=== PATIENT | male | born 1940 | race Caucasian/White ===

== ENCOUNTER → 2016-08-08 | Outpatient (CLI) | payer MEDICARE, OTHER ==
[2016-08-08 13:12] LABS: PROTHROMBIN TIME 31.7 SEC (11.4-15.4)
== END ==
LOC: OD 12:29
PROVIDERS: ATTEND Specialist
DX: Z79.01 Long term (current) use of anticoagulants (principal); I42.9 Cardiomyopathy, unspecified
CPT/HCPCS: 36415; 85610

== ENCOUNTER → 2016-10-10 | Outpatient (CLI) | payer MEDICARE, OTHER ==
[2016-10-10 11:11] LABS: PROTHROMBIN TIME 33.5 SEC (11.4-15.4)
== END ==
LOC: OD 10:13
PROVIDERS: ATTEND Specialist
DX: I42.9 Cardiomyopathy, unspecified (principal); Z79.01 Long term (current) use of anticoagulants
CPT/HCPCS: 36415; 85610

== ENCOUNTER → 2016-11-15 | Outpatient (CLI) | payer MEDICARE, OTHER ==
[2016-11-15 11:33] LABS: PROTHROMBIN TIME 43.1 SEC (11.4-15.4)
[2016-11-15 11:57] LABS: ALANINE AMINOTRANSFERASE 25 U/L (21-72); ALBUMIN 3.7 g/dL (3.5-5.0); ALKALINE PHOSPHATASE 42 U/L (38-126); ASPARTATE AMINO TRANSFERASE 21 U/L (17-59); BILIRUBIN,DIRECT 0.5 mg/dL (0.0-0.4); BILIRUBIN,TOTAL 0.8 mg/dL (0.2-1.3); CHOLESTEROL 118.48 mg/dL (0-200); Direct HDL 55 mg/dL (>40); TOTAL PROTEIN 6.3 g/dL (6.3-8.2); TRIGLYCERIDES 275 mg/dL (<150)
[2016-11-15 12:08] LABS: DIRECT LDL 33 mg/dL (<100)
== END ==
LOC: OD 10:51
PROVIDERS: ATTEND Specialist
DX: I25.10 Atherosclerotic heart disease of native coronary artery without angina pectoris (principal); I42.9 Cardiomyopathy, unspecified; E78.4 Other hyperlipidemia; I44.7 Left bundle-branch block, unspecified; I48.1 Persistent atrial fibrillation; Z79.01 Long term (current) use of anticoagulants; I66.9 Occlusion and stenosis of unspecified cerebral artery; R01.1 Cardiac murmur, unspecified; Z79.899 Other long term (current) drug therapy; G45.9 Transient cerebral ischemic attack, unspecified
CPT/HCPCS: 36415; 80061; 80076; 85610

== ENCOUNTER → 2016-11-26 | Outpatient (CLI) | payer MEDICARE, OTHER ==
[2016-11-26 11:40] LABS: PROTHROMBIN TIME 45.8 SEC (11.4-15.4)
== END ==
LOC: OD 10:25
PROVIDERS: ATTEND Specialist
DX: I42.9 Cardiomyopathy, unspecified (principal); Z79.01 Long term (current) use of anticoagulants
CPT/HCPCS: 36415; 85610

== ENCOUNTER → 2016-12-04 | Outpatient (CLI) | payer MEDICARE, OTHER ==
[2016-12-04 13:32] LABS: PROTHROMBIN TIME 28.1 SEC (11.4-15.4)
== END ==
LOC: OD 12:20
PROVIDERS: ATTEND Specialist
DX: Z79.01 Long term (current) use of anticoagulants (principal); I42.9 Cardiomyopathy, unspecified
CPT/HCPCS: 36415; 85610

== ENCOUNTER → 2017-01-17 | Outpatient (CLI) | payer MEDICARE, OTHER ==
[2017-01-17 12:07] LABS: PROTHROMBIN TIME 12.6 SEC (11.4-15.4)
== END ==
LOC: OD 11:04
PROVIDERS: ATTEND Specialist
DX: Z79.01 Long term (current) use of anticoagulants (principal); I42.9 Cardiomyopathy, unspecified
CPT/HCPCS: 36415; 85610

== ENCOUNTER → 2017-01-31 | Outpatient (CLI) | payer MEDICARE, OTHER ==
[2017-01-31 12:15] LABS: PROTHROMBIN TIME 31.4 SEC (11.4-15.4)
== END ==
LOC: OD 11:26
PROVIDERS: ATTEND Specialist
DX: I42.9 Cardiomyopathy, unspecified (principal); Z79.01 Long term (current) use of anticoagulants
CPT/HCPCS: 85610

== ENCOUNTER → 2017-02-18 | Outpatient (CLI) | payer MEDICARE, OTHER ==
[2017-02-18 13:39] LABS: PROTHROMBIN TIME 20.3 SEC (11.4-15.4)
== END ==
LOC: OD 12:49
PROVIDERS: ATTEND Specialist
DX: I42.9 Cardiomyopathy, unspecified (principal); Z79.01 Long term (current) use of anticoagulants
CPT/HCPCS: 36415; 85610

== ENCOUNTER → 2017-03-28 | Outpatient (CLI) | payer MEDICARE, OTHER ==
[2017-03-28 12:25] LABS: PROTHROMBIN TIME 35.1 SEC (11.4-15.4)
== END ==
LOC: OD 11:41
PROVIDERS: ATTEND Specialist
DX: Z79.01 Long term (current) use of anticoagulants (principal); I48.1 Persistent atrial fibrillation
CPT/HCPCS: 36415; 85610

== ENCOUNTER → 2017-04-22 | Outpatient (CLI) | payer MEDICARE, OTHER ==
[2017-04-22 12:31] LABS: PROTHROMBIN TIME 33.3 SEC (11.4-15.4)
== END ==
LOC: OD 11:25
PROVIDERS: ATTEND Specialist
DX: I48.1 Persistent atrial fibrillation (principal); Z79.01 Long term (current) use of anticoagulants
CPT/HCPCS: 36415; 85610

== ENCOUNTER → 2017-05-28 | Outpatient (CLI) | payer MEDICARE, OTHER ==
[2017-05-28 11:15] LABS: PROTHROMBIN TIME 29.6 SEC (11.4-15.4)
== END ==
LOC: OD 09:24
PROVIDERS: ATTEND Specialist
DX: I48.1 Persistent atrial fibrillation (principal); Z79.01 Long term (current) use of anticoagulants
CPT/HCPCS: 36415; 85610

== ENCOUNTER → 2017-07-31 | Outpatient (CLI) | payer MEDICARE, OTHER ==
[2017-07-31 11:15] LABS: INTERNATIONAL RATION (INR) 2.74; PROTHROMBIN TIME 30.3 SEC (11.4-15.4)
== END ==
LOC: OD 10:13
PROVIDERS: ATTEND Specialist
DX: I48.1 Persistent atrial fibrillation (principal); Z79.01 Long term (current) use of anticoagulants
CPT/HCPCS: 36415; 85610

== ENCOUNTER → 2017-09-25 | Outpatient (CLI) | payer MEDICARE, OTHER ==
[2017-09-25 10:42] LABS: INTERNATIONAL RATION (INR) 2.88; PROTHROMBIN TIME 31.6 SEC (11.4-15.4)
== END ==
LOC: OD 09:40
PROVIDERS: ATTEND Specialist
DX: I48.1 Persistent atrial fibrillation (principal); Z79.01 Long term (current) use of anticoagulants
CPT/HCPCS: 36415; 85610

== ENCOUNTER → 2017-11-05 | Outpatient (CLI) | payer MEDICARE, OTHER ==
[2017-11-05 13:07] LABS: PROTHROMBIN TIME 31.7 SEC (11.4-15.4)
== END ==
LOC: OD 12:18
PROVIDERS: ATTEND Specialist
DX: I48.1 Persistent atrial fibrillation (principal); Z79.01 Long term (current) use of anticoagulants
CPT/HCPCS: 36415; 85610

== ENCOUNTER → 2017-12-21 | Outpatient (CLI) | payer MEDICARE, OTHER ==
[2017-12-21 11:47] LABS: INTERNATIONAL RATION (INR) 3.79; PROTHROMBIN TIME 39.1 SEC (11.4-15.4)
== END ==
LOC: OD 10:48
PROVIDERS: ATTEND Specialist
DX: I48.1 Persistent atrial fibrillation (principal); Z79.01 Long term (current) use of anticoagulants
CPT/HCPCS: 36415; 85610

== ENCOUNTER → 2018-01-09 | Outpatient (CLI) | payer MEDICARE, OTHER ==
[2018-01-09 10:19] LABS: PROTHROMBIN TIME 15.8 SEC (11.4-15.4)
[2018-01-09 10:20] LABS: PARTIAL THROMBOPLASTIN TIME 25.6 SEC (23.5-35.8)
== END ==
LOC: OD 09:14
PROVIDERS: ATTEND Pain Medicine Interventional Pain Medicine
DX: D68.9 Coagulation defect, unspecified (principal); Z79.01 Long term (current) use of anticoagulants
CPT/HCPCS: 36415; 85610; 85730

== ENCOUNTER → 2018-01-20 | Outpatient (CLI) | payer MEDICARE, OTHER ==
[2018-01-20 10:06] LABS: INTERNATIONAL RATION (INR) 2.58; PROTHROMBIN TIME 28.9 SEC (11.4-15.4)
== END ==
LOC: OD 09:01
PROVIDERS: ATTEND Specialist
DX: I48.1 Persistent atrial fibrillation (principal); Z79.01 Long term (current) use of anticoagulants
CPT/HCPCS: 36415; 85610

== ENCOUNTER → 2018-02-12 | Outpatient (CLI) | payer MEDICARE, OTHER ==
--- NOTE | 2018-02-12 09:34 | RADIOLOGY REPORT (SQ) ---
EXAM DESCRIPTION: CT CHEST WITH COMPLETED DATE/TIME: 02/12/2018 8:56 am REASON FOR STUDY: R06.02 SHORTNESS OF BREATH R06.01 ORTHOPNEA Z72.0 TOBACCO USE R63.4 ABNORMAL WE IGHT LOSS COMPARISON: 2014. TECHNIQUE: CT scan of the chest performed using helical scanning technique with dynamic intravenous contrast injection. Images reviewed with lung, soft tissue and bone windows. Reconstructed coronal and sagittal MPR and MIP images reviewed. All images stored on PACS. All CT scanners at this facility use dose modulation, iterative reconstruction, and/or weight based d osing when appropriate to reduce radiation dose to as low as reasonably achievable (ALARA). [facility]: Dose Right [facility]: CareDose [facility]: Dose Right [facility]: Teradose 4D [facility]: [employer] CONTRAST TYPE AND DOSE: contrast/concentration: Isovue 350.00 mg/ml; Total Contrast Delivered: 80.0 ml; Total Saline Delivered: 55.0 ml RENAL FUNCTION: Creatinine 1.2 RADIATION DOSE: CT Rad equipment meets quality standard of care and radiation dose reduction techniq ues were employed. CTDIvol: 3.7 mGy. DLP: 142 mGy-cm. . LIMITATIONS: None. FINDINGS: LUNGS AND PLEURA: No opacities, nodules, masses. No pneumothorax. No effusions. HILAR AND MEDIASTINAL STRUCTURES: No identified masses or abnormal nodes. HEART AND VASCULAR STRUCTURES: No pericardial effusion. No aortic aneurysm or dissection. Atheroscl erosis. No pulmonary embolus. Heavy coronary calcification. HARDWARE: None in the chest. UPPER ABDOMEN: No significant findings. Limited exam. THYROID AND OTHER SOFT TISSUES: No masses. No adenopathy. BONES: No significant finding. OTHER: No other significant finding. IMPRESSION: 1. Atherosclerosis. Includes significant coronary calcification. 2. Otherwise, fairly unremarkable abdominopelvic CT. No lung lesions. No mediastinal or hilar mass or adenopathy. TECHNICAL DOCUMENTATION: JOB ID: [id number] Quality ID # [id number]: Final reports with documentation of one or more dose reduction techniques (e.g., Au tomated exposure control, adjustment of the mA and/or kV according to patient size, use of iterative reconstruction technique) 2010 [employer]- All Rights Reserved Reading location - IP/workstation name: [email or web address]
== END ==
LOC: RAD 08:21
PROVIDERS: ATTEND Student in an Organized Health Care Education/Training Program
DX: R63.4 Abnormal weight loss (principal); R06.02 Shortness of breath; M54.9 Dorsalgia, unspecified; Z87.891 Personal history of nicotine dependence
CPT/HCPCS: 71260; 82565

== ENCOUNTER → 2018-03-29 | Outpatient (CLI) | payer MEDICARE, OTHER | LOC: OD 10:49 | PROVIDERS: ATTEND Specialist | DX: I48.1 Persistent atrial fibrillation (principal); Z79.01 Long term (current) use of anticoagulants ==

== ENCOUNTER → 2018-03-31 | Outpatient (CLI) | payer MEDICARE, OTHER ==
[2018-03-31 13:28] LABS: INTERNATIONAL RATION (INR) 5.58; PROTHROMBIN TIME 53.1 SEC (11.4-15.4)
== END ==
LOC: OD 11:23
PROVIDERS: ATTEND Specialist
DX: I48.1 Persistent atrial fibrillation (principal); Z79.01 Long term (current) use of anticoagulants
CPT/HCPCS: 36415; 85610

== ENCOUNTER → 2018-04-03 | Outpatient (CLI) | payer MEDICARE, OTHER ==
[2018-04-03 14:37] LABS: INTERNATIONAL RATION (INR) 2.36; PROTHROMBIN TIME 26.9 SEC (11.4-15.4)
== END ==
LOC: OD 12:57
PROVIDERS: ATTEND Specialist
DX: I48.1 Persistent atrial fibrillation (principal); Z79.01 Long term (current) use of anticoagulants
CPT/HCPCS: 36415; 85610

== ENCOUNTER → 2018-04-17 | Outpatient (CLI) | payer MEDICARE, OTHER ==
[2018-04-17 09:20] LABS: INTERNATIONAL RATION (INR) 1.64; PROTHROMBIN TIME 20.2 SEC (11.4-15.4)
== END ==
LOC: OD 08:38
PROVIDERS: ATTEND Specialist
DX: I48.1 Persistent atrial fibrillation (principal); Z79.01 Long term (current) use of anticoagulants
CPT/HCPCS: 36415; 85610

== ENCOUNTER 2018-05-15 17:48 | Emergency (ER) | payer MEDICARE, OTHER ==
[2018-05-15 18:00] VITALS: BP 161/112
[2018-05-15] MEDS ORDERED: METOCLOPRAMIDE HCL ORAL SOLN 10 MG/10 ML UDCUP PO ONE (18:21)
[2018-05-15] MEDS ORDERED: MAG HYDROX/AL HYDROX/SIMETH SUSP 30 ML UDCUP PO ONE (18:21)
[2018-05-15] MEDS ORDERED: LIDOCAINE 2% VISCOUS SOLN 20 ML UDCUP PO ONE (18:21)
--- NOTE | 2018-05-15 18:32 | ER Document Report ---
ED General - General Chief Complaint: Swallowed Foreign Body Stated Complaint: THROAT ISSUES Time Seen by Provider: 05/15/18 18:21 Notes: Patient is a 78-year-old male with a past medical history of a prior CVA, hypertension, presents after approximately 12 hours of feeling like there is a pill stuck in his throat. Patient states that he took 2 tablets of docusate today. States the first tablet passed fine but the second tablet has felt like it has been in his throat the entire time after swallowing. He describes it as a constant, annoying sensation of a pill being stuck in the left side of his throat. He has tried chewing bread, drinking alcohol, no relief with either of these measures. No history of similar symptoms in the past. He has not contacted his primary doctor regarding today's he denies any inability to swallow or difficulty speaking. No shortness of breath. No orthopnea. Symptoms have been relatively unchanged since onset. TRAVEL OUTSIDE OF THE [place] IN LAST 30 DAYS: No - Related Data Allergies/Adverse Reactions: sulfamethoxazole [From Febra] Allergy (Verified 05/15/18 17:51) trimethoprim [From Febra] Allergy (Verified 05/15/18 17:51) Past Medical History - General Information source: Patient - Social History Smoking Status: Former Smoker Chew tobacco use (# tins/day): No Frequency of alcohol use: Heavy Drug Abuse: None Lives with: Spouse/Significant other Family History: Reviewed & Not Pertinent, CAD, Hypertension Patient has suicidal ideation: No Patient has homicidal ideation: No - Past Medical History Cardiac Medical History: Reports: Hx Atrial Fibrillation, Hx Congestive Heart Failure - Last documented ejection fraction 35%, Hx Hypercholesterolemia, Hx Hypertension Pulmonary Medical History: Neurological Medical History: Reports: Hx Cerebrovascular Accident - 12/06/14 Renal/ Medical History: Denies: Hx Peritoneal Dialysis Musculoskeletal Medical History: Past Surgical History: Reports: Hx Cardiac Catheterization - Reportedly no significant coronary artery disease, Hx Tonsillectomy, Hx Vascular Surgery - Left carotid endarterectomy - Immunizations Hx Diphtheria, Pertussis, Tetanus Vaccination: Yes Hx Pneumococcal Vaccination: 03/25/13 Review of Systems - Review of Systems Notes: Constitutional: Negative for fever. HENT: Positive for pill sensation in the throat Eyes: Negative for visual changes. Cardiovascular: Negative for chest pain. Respiratory: Negative for shortness of breath. Gastrointestinal: Negative for abdominal pain, vomiting or diarrhea. Genitourinary: Negative for dysuria. Musculoskeletal: Negative for back pain. Skin: Negative for rash. Neurological: Negative for headaches, weakness or numbness. 10 point ROS negative except as marked above and in HPI. Physical Exam - Vital signs Vitals: Temp Pulse Resp BP Pulse Ox 98.1 F 113 H 20 161/112 H 97 05/15/18 17:57 05/15/18 17:57 05/15/18 17:57 05/15/18 17:57 05/15/18 17:57 Interpretation: Tachycardic - Resolved at the time of my assessment Notes: PHYSICAL EXAMINATION: GENERAL: Well-appearing, well-nourished and in no acute distress. HEAD: Atraumatic, normocephalic. EYES: Pupils equal round and reactive to light, extraocular movements intact, sclera anicteric, conjunctiva are normal. ENT: nares patent, oropharynx clear without exudates. Moist mucous membranes. NECK: Normal range of motion, supple without lymphadenopathy LUNGS: Breath sounds clear to auscultation bilaterally and equal. No wheezes rales or rhonchi. HEART: Regular rate and rhythm without murmurs ABDOMEN: Soft, nontender, normoactive bowel sounds. No guarding, no rebound. No masses appreciated. EXTREMITIES: Normal range of motion, no pitting or edema. No cyanosis. NEUROLOGICAL: No focal neurological deficits. Moves all extremities spontaneously and on command. PSYCH: Normal mood, normal affect. SKIN: Warm, Dry, normal turgor, no rashes or lesions noted. Course - Re-evaluation Re-evalutation: 05/15/18 18:30 Patient presents with signs and symptoms most consistent with an acute pill esophagitis. The tablet he ingested, docusate is a gel capsule with liquid medication internally. does verify that this was the formulation of the pill. This would have dissolved in the patient's throat quite some time ago without incident. Moreover the patient is not having any signs of an esophageal obstruction. No symptoms of tracheal involvement. Able to swallow without any difficulty. Suspect that this is more sensation of the pill remaining in the throat. The patient did have improvement after swallowing viscous lidocaine. I have advised that the his symptoms should completely resolve within the next 24-48 hours. I do not see an indication for labs or imaging in this context. At this time will discharge with return precautions and follow-up recommendations. Verbal discharge instructions given a the bedside and opportunity for questions given. Medication warnings reviewed. Patient is in agreement with this plan and has verbalized understanding of return precautions and the need for primary care follow-up in the next 24-72 hours. - Vital Signs Vital signs: Temp Pulse Resp BP Pulse Ox 98.1 F 113 H 20 161/112 H 97 05/15/18 17:57 05/15/18 17:57 05/15/18 17:57 05/15/18 17:57 05/15/18 17:57 Discharge - Discharge Clinical Impression: Pill esophagitis Condition: Good Disposition: HOME, SELF-CARE Additional Instructions: Your symptoms should resolve in the next 48 hours. You may consume substances such as Maalox per bottle instructions, whole milk, or marj which may help your sensation. Please return to the emergency room immediately if he began to have difficulty breathing, become unable to swallow, or have any other symptoms that are worrisome to you. Please follow-up with your primary care doctor within the next 24-48 hours. Referrals: SANDIP STAFFORD, [Primary Care Provider] - Follow up as needed
== END 2018-05-15 18:58 | disposition home or self-care (01) ==
LOC: ER 17:48
DX: K20.8 Other esophagitis (principal); I10 Essential (primary) hypertension; Z86.73 Personal history of transient ischemic attack (TIA), and cerebral infarction without residual deficits; Z88.1 Allergy status to other antibiotic agents; Z87.891 Personal history of nicotine dependence
CPT/HCPCS: 99283; J3490; A9270

== ENCOUNTER → 2018-06-13 | Outpatient (CLI) | payer MEDICARE, OTHER ==
[2018-06-13 12:36] LABS: INTERNATIONAL RATION (INR) 4.11; PROTHROMBIN TIME 41.7 SEC (11.4-15.4)
== END ==
LOC: OD 11:34
PROVIDERS: ATTEND Specialist
DX: I48.1 Persistent atrial fibrillation (principal); Z79.01 Long term (current) use of anticoagulants
CPT/HCPCS: 36415; 85610

== ENCOUNTER → 2018-06-16 | Outpatient (CLI) | payer MEDICARE, OTHER ==
--- NOTE | 2018-06-16 09:38 | RADIOLOGY REPORT (SQ) ---
EXAM DESCRIPTION: CT ABD/PELVIS WITH IV ORAL COMPLETED DATE/TIME: 06/16/2018 9:13 am REASON FOR STUDY: ABNORMAL WEIGHT LOSS, WEAKNESS R63.4 ABNORMAL WEIGHT LOSS R53.1 WEAKNESS COMPARISON: Renal ultrasound 09/15/2015 CT angio abdomen and pelvis 12/06/2014 TECHNIQUE: CT scan of the abdomen and pelvis performed using helical scanning technique with dynamic intravenous contrast injection. No oral contrast. Images reviewed with lung, soft tissue, and bone windows. Reconstructed coronal and sagittal MPR images reviewed. Delayed images for evaluation of the urinary system also acquired. All images stored on PACS. All CT scanners at this facility use dose modulation, iterative reconstruction, and/or weight based d osing when appropriate to reduce radiation dose to as low as reasonably achievable (ALARA). [facility]: Dose Right [facility]: CareDose [facility]: Dose Right [facility]: Teradose 4D [facility]: [employer] CONTRAST TYPE AND DOSE: contrast/concentration: Isovue 350.00 mg/ml; Total Contrast Delivered: 70.0 ml; Total Saline Delivered: 65.0 ml RENAL FUNCTION: Creatinine 0.9 RADIATION DOSE: CT Rad equipment meets quality standard of care and radiation dose reduction techniq ues were employed. CTDIvol: 5.4 - 6.2 mGy. DLP: 561 mGy-cm.. LIMITATIONS: None. FINDINGS: LOWER CHEST: Small bilateral pleural effusions are present. LIVER: Diffuse fatty infiltration of the liver. No focal masses SPLEEN: Normal size. No focal lesions. PANCREAS: No masses. No significant calcifications. No adjacent inflammation or peripancreatic fluid collections. Pancreatic duct not dilated. GALLBLADDER: No identified stones by CT criteria. No inflammatory changes to suggest cholecystitis. ADRENAL GLANDS: No significant masses or asymmetry. RIGHT KIDNEY AND URETER: No solid masses. No significant calcifications. No hydronephrosis or hyd roureter. LEFT KIDNEY AND URETER: No solid masses. No significant calcifications. No hydronephrosis or hydr oureter. AORTA AND VESSELS: No abdominal aortic aneurysm. Heavily calcified at abdominal aorta with atheroscl erotic 50 to 75% narrowing of the SMA, bilateral renal arteries and bilateral common iliac arteries. RETROPERITONEUM: No retroperitoneal adenopathy, hemorrhage or masses. BOWEL AND PERITONEAL CAVITY: Patient drank oral contrast. There are multiple colonic diverticuli wit hout CT signs of acute diverticulitis. No bowel obstruction. No free intraperitoneal air or fluid. APPENDIX: Normal. PELVIS: No mass. No free fluid. Normal bladder. ABDOMINAL WALL: No masses. No hernias. BONES: No significant or acute findings. OTHER: No other significant finding. IMPRESSION: Trace bilateral pleural effusions Fatty liver Colonic diverticulosis without diverticulitis Atherosclerotic aortoiliac and visceral artery calcification TECHNICAL DOCUMENTATION: JOB ID: [id number] Quality ID # [id number]: Final reports with documentation of one or more dose reduction techniques (e.g., Au tomated exposure control, adjustment of the mA and/or kV according to patient size, use of iterative reconstruction technique) 2010 [employer]- All Rights Reserved Reading location - IP/workstation name: [email or web address]
--- NOTE | 2018-06-16 09:41 | RADIOLOGY REPORT (SQ) ---
EXAM DESCRIPTION: CT HEAD WITH COMPLETED DATE/TIME: 06/16/2018 9:13 am REASON FOR STUDY: ABNORMAL WEIGHT LOSS, WEAKNESS R63.4 ABNORMAL WEIGHT LOSS R53.1 WEAKNESS COMPARISON: 06/06/2016 TECHNIQUE: Axial images acquired through the brain with and without intravenous contrast. Images rev iewed with bone, brain and subdural windows. Additional sagittal and coronal reconstructions were ge nerated. Images stored on PACS. All CT scanners at this facility use dose modulation, iterative reconstruction, and/or weight based d osing when appropriate to reduce radiation dose to as low as reasonably achievable (ALARA). [facility]: Dose Right [facility]: CareDose [facility]: Dose Right [facility]: Teradose 4D [facility]: [employer] CONTRAST TYPE AND DOSE: 70 mL Omnipaque 350- low osmolar. RENAL FUNCTION: Creatinine 0.9 RADIATION DOSE: CT Rad equipment meets quality standard of care and radiation dose reduction techniq ues were employed. CTDIvol: 48.6 mGy. DLP: 929 mGy-cm.. LIMITATIONS: None. FINDINGS: VENTRICLES: Moderate atrophy CEREBRUM: No masses. No hemorrhage. No midline shift. Mild chronic small vessel ischemic disease inv olving white matter. No evidence for acute infarction. No enhancing lesions. CEREBELLUM: No masses. No hemorrhage. No alteration of density. No evidence for acute infarction. No enhancing lesions. EXTRA-AXIAL SPACES: No fluid collections. No enhancing lesions. ORBITS AND GLOBE: No intra- or extraconal masses. Normal contour of globe without masses. CALVARIUM: No fracture. PARANASAL SINUSES: No fluid or mucosal thickening. SOFT TISSUES: No mass or hematoma. OTHER: No other significant finding. IMPRESSION: 1. No acute abnormality involving the brain. 2. Moderate atrophy and mild chronic small vessel ischemic disease. EVIDENCE OF ACUTE STROKE: NO. TECHNICAL DOCUMENTATION: JOB ID: [id number] Quality ID # [id number]: Final reports with documentation of one or more dose reduction techniques (e.g., Au tomated exposure control, adjustment of the mA and/or kV according to patient size, use of iterative reconstruction technique) 2010 [employer]- All Rights Reserved Reading location - IP/workstation name: [email or web address]
== END ==
LOC: RAD 08:32
PROVIDERS: ATTEND Internal Medicine Hematology & Oncology
DX: R63.4 Abnormal weight loss (principal); R53.1 Weakness
CPT/HCPCS: 70460; 74177; 82565

== ENCOUNTER → 2018-07-01 | Outpatient (CLI) | payer MEDICARE, OTHER ==
[2018-07-01 14:14] LABS: INTERNATIONAL RATION (INR) 1.15; PROTHROMBIN TIME 15.3 SEC (11.4-15.4)
== END ==
LOC: OD 13:02
PROVIDERS: ATTEND Specialist
DX: I48.1 Persistent atrial fibrillation (principal); Z79.01 Long term (current) use of anticoagulants
CPT/HCPCS: 36415; 85610

== ENCOUNTER → 2018-07-09 | Outpatient (CLI) | payer MEDICARE, OTHER ==
[2018-07-09 13:14] LABS: INTERNATIONAL RATION (INR) 1.67; PROTHROMBIN TIME 20.5 SEC (11.4-15.4)
== END ==
LOC: OD 12:30
PROVIDERS: ATTEND Specialist
DX: I48.1 Persistent atrial fibrillation (principal); Z79.01 Long term (current) use of anticoagulants
CPT/HCPCS: 36415; 85610

== ENCOUNTER → 2018-07-16 | Outpatient (CLI) | payer MEDICARE, OTHER ==
[2018-07-16 14:19] LABS: INTERNATIONAL RATION (INR) 1.15; PROTHROMBIN TIME 15.3 SEC (11.4-15.4)
== END ==
LOC: OD 13:21
PROVIDERS: ATTEND Specialist
DX: I48.1 Persistent atrial fibrillation (principal); Z79.01 Long term (current) use of anticoagulants
CPT/HCPCS: 36415; 85610

== ENCOUNTER → 2018-08-06 | Outpatient (CLI) | payer MEDICARE, OTHER ==
[2018-08-06 14:54] LABS: INTERNATIONAL RATION (INR) 1.92; PROTHROMBIN TIME 22.9 SEC (11.4-15.4)
== END ==
LOC: OD 12:59
PROVIDERS: ATTEND Specialist
DX: I48.1 Persistent atrial fibrillation (principal); Z79.01 Long term (current) use of anticoagulants
CPT/HCPCS: 36415; 85610

== ENCOUNTER → 2018-08-18 | Outpatient (CLI) | payer MEDICARE, OTHER ==
[2018-08-18 13:20] LABS: ALANINE AMINOTRANSFERASE 10 U/L (21-72); ALBUMIN 3.8 g/dL (3.5-5.0); ALKALINE PHOSPHATASE 72 U/L (38-126); ANION GAP 10 (5-19); ASPARTATE AMINO TRANSFERASE 27 U/L (17-59); BILIRUBIN,DIRECT 0.3 mg/dL (0.0-0.4); BILIRUBIN,TOTAL 0.5 mg/dL (0.2-1.3); BLOOD UREA NITROGEN 8 mg/dL (7-20); CALCIUM 9.5 mg/dL (8.4-10.2); CARBON DIOXIDE 29 mmol/L (22-30); CHLORIDE 105 mmol/L (98-107); CHOLESTEROL 109.78 mg/dL (0-200); GLUCOSE 117 mg/dL (75-110); POTASSIUM 4.7 mmol/L (3.6-5.0); SODIUM 143.8 mmol/L (137-145); TOTAL PROTEIN 6.1 g/dL (6.3-8.2); TRIGLYCERIDES 156 mg/dL (<150)
[2018-08-18 13:31] LABS: DIRECT LDL 37 mg/dL (<100)
[2018-08-18 13:32] LABS: VLDL CHOLESTEROL 31.2 mg/dL (10-31)
== END ==
LOC: OD 11:55
PROVIDERS: ATTEND Specialist
DX: D69.6 Thrombocytopenia, unspecified (principal); I44.7 Left bundle-branch block, unspecified; E78.5 Hyperlipidemia, unspecified; I25.10 Atherosclerotic heart disease of native coronary artery without angina pectoris; I42.9 Cardiomyopathy, unspecified; I48.1 Persistent atrial fibrillation; Z79.01 Long term (current) use of anticoagulants; I66.9 Occlusion and stenosis of unspecified cerebral artery; R01.1 Cardiac murmur, unspecified; G45.9 Transient cerebral ischemic attack, unspecified; M62.81 Muscle weakness (generalized); Z79.899 Other long term (current) drug therapy
CPT/HCPCS: 36415; 80053; 80061

== ENCOUNTER → 2018-08-22 | Outpatient (CLI) | payer MEDICARE, OTHER ==
[2018-08-22 11:41] LABS: INTERNATIONAL RATION (INR) 2.45; PROTHROMBIN TIME 27.7 SEC (11.4-15.4)
== END ==
LOC: OD 10:35
PROVIDERS: ATTEND Specialist
DX: I48.1 Persistent atrial fibrillation (principal); Z79.01 Long term (current) use of anticoagulants
CPT/HCPCS: 36415; 85610

== ENCOUNTER → 2018-09-10 | Outpatient (CLI) | payer MEDICARE, OTHER ==
[2018-09-10 14:38] LABS: INTERNATIONAL RATION (INR) 2.86; PROTHROMBIN TIME 31.4 SEC (11.4-15.4)
== END ==
LOC: OD 13:46
PROVIDERS: ATTEND Specialist
DX: I48.1 Persistent atrial fibrillation (principal); Z79.01 Long term (current) use of anticoagulants
CPT/HCPCS: 36415; 85610

== ENCOUNTER → 2018-09-24 | Outpatient (CLI) | payer MEDICARE, OTHER ==
[2018-09-24 13:11] LABS: INTERNATIONAL RATION (INR) 1.79; PROTHROMBIN TIME 21.6 SEC (11.4-15.4)
== END ==
LOC: OD 12:18
PROVIDERS: ATTEND Specialist
DX: I48.1 Persistent atrial fibrillation (principal); Z79.01 Long term (current) use of anticoagulants
CPT/HCPCS: 36415; 85610

== ENCOUNTER → 2018-10-29 | Outpatient (CLI) | payer MEDICARE, OTHER ==
[2018-10-29 10:02] LABS: INTERNATIONAL RATION (INR) 1.22
== END ==
LOC: OD 08:52
PROVIDERS: ATTEND Specialist
DX: I48.1 Persistent atrial fibrillation (principal); Z79.01 Long term (current) use of anticoagulants
CPT/HCPCS: 36415; 85610

== ENCOUNTER → 2018-11-20 | Outpatient (CLI) | payer MEDICARE, OTHER | LOC: OD 08:51 | PROVIDERS: ATTEND Specialist | DX: I48.1 Persistent atrial fibrillation (principal); Z79.01 Long term (current) use of anticoagulants; Z53.8 Procedure and treatment not carried out for other reasons ==

== ENCOUNTER → 2018-11-24 | Outpatient (CLI) | payer MEDICARE, OTHER ==
[2018-11-24 11:29] LABS: INTERNATIONAL RATION (INR) 14.46
[2018-11-24 11:44] LABS: PROTHROMBIN TIME 112.2 SEC (11.4-15.4)
== END ==
LOC: OD 10:03
PROVIDERS: ATTEND Specialist
DX: I48.1 Persistent atrial fibrillation (principal); Z79.01 Long term (current) use of anticoagulants
CPT/HCPCS: 36415; 85610

== ENCOUNTER → 2018-11-28 | Outpatient (CLI) | payer MEDICARE, OTHER | LOC: OD 10:38 | PROVIDERS: ATTEND Specialist | DX: I48.1 Persistent atrial fibrillation (principal); Z79.01 Long term (current) use of anticoagulants | CPT/HCPCS: 36415; 85610 ==

== ENCOUNTER → 2018-12-05 | Outpatient (CLI) | payer MEDICARE, OTHER ==
[2018-12-05 13:27] LABS: PROTHROMBIN TIME 93.7 SEC (11.4-15.4)
== END ==
LOC: OD 11:53
PROVIDERS: ATTEND Specialist
DX: I48.1 Persistent atrial fibrillation (principal); Z79.01 Long term (current) use of anticoagulants
CPT/HCPCS: 36415; 85610

== ENCOUNTER → 2018-12-08 | Outpatient (CLI) | payer MEDICARE, OTHER ==
[2018-12-08 12:01] LABS: INTERNATIONAL RATION (INR) 6.53
== END ==
LOC: OD 10:21
PROVIDERS: ATTEND Specialist
DX: I48.1 Persistent atrial fibrillation (principal); Z79.01 Long term (current) use of anticoagulants
CPT/HCPCS: 36415; 85610

== ENCOUNTER → 2018-12-12 | Outpatient (CLI) | payer MEDICARE, OTHER ==
[2018-12-12 10:39] LABS: INTERNATIONAL RATION (INR) 1.62
== END ==
LOC: OD 09:47
PROVIDERS: ATTEND Specialist
DX: I48.1 Persistent atrial fibrillation (principal); Z79.01 Long term (current) use of anticoagulants
CPT/HCPCS: 36415; 85610

== ENCOUNTER → 2019-01-17 | Outpatient (CLI) | payer MEDICARE, OTHER ==
[2019-01-17 10:25] LABS: ABSOLUTE BASOPHILS # (AUTO) 0.1 10^3/uL (0.0-0.2); ABSOLUTE EOSINOPHILS # (AUTO) 0.1 10^3/uL (0.0-0.6); ABSOLUTE LYMPHOCYTES (AUTO) 1.7 10^3/uL (0.5-4.7); ABSOLUTE MONOCYTES (AUTO) 0.5 10^3/uL (0.1-1.4); ABSOLUTE NEUT (AUTO) 3.5 10^3/uL (1.7-8.2); BASOPHILS % (AUTO) 1.1 % (0-2); EOSINOPHILS % (AUTO) 2.5 % (0-6); HEMATOCRIT 40.1 % (37.9-51.0); HEMOGLOBIN 13.7 g/dL (13.5-17.0); LYMPHOCYTES % (AUTO) 28.3 % (13-45); MEAN CORPUSCULAR HEMOGLOBIN 35.7 pg (27.0-33.4); MEAN CORPUSCULAR HGB CONC 34.3 g/dL (32.0-36.0); MEAN CORPUSCULAR VOLUME 104 fl (80-97); MONOCYTES % (AUTO) 8.4 % (3-13); RED BLOOD COUNT 3.85 10^6/uL (4.35-5.55); RED CELL DISTRIBUTION WIDTH 16.9 % (11.5-14.0); SEGMENTED NEUTROPHILS % (AUTO) 59.7 % (42-78); TOTAL CELLS COUNTED % (AUTO) 100 %; WHITE BLOOD COUNT 5.9 10^3/uL (4.0-10.5)
[2019-01-17 10:48] LABS: ALANINE AMINOTRANSFERASE 23 U/L (21-72); ALBUMIN 3.8 g/dL (3.5-5.0); ALKALINE PHOSPHATASE 60 U/L (38-126); ANION GAP 8 (5-19); ASPARTATE AMINO TRANSFERASE 38 U/L (17-59); BILIRUBIN,DIRECT 0.3 mg/dL (0.0-0.4); BILIRUBIN,TOTAL 0.9 mg/dL (0.2-1.3); BLOOD UREA NITROGEN 14 mg/dL (7-20); CALCIUM 9.5 mg/dL (8.4-10.2); CARBON DIOXIDE 30 mmol/L (22-30); CHLORIDE 100 mmol/L (98-107); GLUCOSE 103 mg/dL (75-110); POTASSIUM 4.1 mmol/L (3.6-5.0); TOTAL PROTEIN 6.2 g/dL (6.3-8.2)
[2019-01-17 10:52] LABS: PLATELET COUNT 85 10^3/uL (150-450)
== END ==
LOC: OD 09:44
PROVIDERS: ATTEND Specialist
DX: D69.6 Thrombocytopenia, unspecified (principal); E78.49 Other hyperlipidemia; I44.7 Left bundle-branch block, unspecified; I48.1 Persistent atrial fibrillation; I66.9 Occlusion and stenosis of unspecified cerebral artery; R01.1 Cardiac murmur, unspecified; I25.10 Atherosclerotic heart disease of native coronary artery without angina pectoris; I42.9 Cardiomyopathy, unspecified; Z79.01 Long term (current) use of anticoagulants; G45.9 Transient cerebral ischemic attack, unspecified; M79.89 Other specified soft tissue disorders
CPT/HCPCS: 36415; 80053; 85025